=== PATIENT | male | born 1970 | race Caucasian/White ===

== ENCOUNTER 2019-03-24 19:12 | Emergency (ER) | payer OTHER ==
[~2019-03-24] VITALS: Ht 177.8 cm; Wt 99.8 kg
--- NOTE | 2019-03-24 19:26 | NUR ---
patient came from home with a cheif complaint of left sided eye and nose pain. Patient rates the pain at a 10 on a scale of 0-10. Patient stated it is localized and does not radiate any where else. Patient stated he took one advil at home prior to coming in and no changes were noted.
[2019-03-24] MEDS ORDERED: TETRACAINE HCL 0.5% OPHT DROP 2 ML BOTTLE ONE (19:42)
--- NOTE | 2019-03-24 19:42 | NUR ---
Dr. Cobb at bedside for treatment.
[2019-03-24] MEDS ORDERED: TETRACAINE HCL 0.5% OPHT DROP 2 ML BOTTLE OP ONE (19:45)
[2019-03-24] MEDS ORDERED: PILOCARPINE 1% OPHT DROP 15 ML BOTTLE ONE (20:28)
[2019-03-24] MEDS ORDERED: PILOCARPINE 1% OPHT DROP 15 ML BOTTLE OP ONE (20:30)
--- NOTE | 2019-03-24 20:47 | NUR ---
Patient discharged to home in stable conditon. Written and verbal after care instructions given. Patient verbalizes understanding of instructions. patient alert and oriented x4. patient self ambulatory with steady gait. exit care package and personal belongings taken home with the patient at discharge. Patient consent to follow up with pcp within the week. Sister at bedside consent to drive the patient home.
[2019-03-24 20:51] VITALS: BP 130/77
[2019-03-24] MEDS ORDERED: DORZOLAMIDE/TIMOLOL OPHT DROP 10 ML BOTTLE LEFTEYE SCH (21:00)
== END 2019-03-24 20:51 | disposition home or self-care (01) ==
LOC: ER 19:16
DX: H40.9 Unspecified glaucoma (principal); E11.9 Type 2 diabetes mellitus without complications; F17.200 Nicotine dependence, unspecified, uncomplicated
CPT/HCPCS: J3590